=== PATIENT | female | born 1955 | race African-American/Black ===

== ENCOUNTER 2019-07-24 10:16 | Emergency (ER) | payer MEDICARE, OTHER ==
[2019-07-24] MEDS ORDERED: HYDROcodone/Acetaminophen 10/325 mg Tablet ONE (11:13)
[2019-07-24 11:26] LABS: Bilirubin Negative (Negative); Blood, Urine Negative (Negative); Clarity Clear (Clear); Glucose, Urine (Dipstick) Normal (Negative); Leukocyte 500 Leu/uL (Negative); Nitrite Negative (Negative); Protein, Urine (Dipstick) Negative (Neg-Trace); RBC/HPF 0-3 HPF (0-3); Urobilinogen Normal mg/dL (Less than 2)
[2019-07-24 11:29] LABS: Bacteria/HPF 1+ HPF (None Seen)
== END 2019-07-24 11:55 | disposition home or self-care (01) ==
LOC: ERS 10:16
DX: S39.012A Strain of muscle, fascia and tendon of lower back, initial encounter (principal); N39.0 Urinary tract infection, site not specified; I10 Essential (primary) hypertension; F41.9 Anxiety disorder, unspecified
CPT/HCPCS: 81003; 81015; 99283